=== PATIENT | female | born 1990 | race Hispanic/Latino ===

== ENCOUNTER 2017-06-19 12:14 | Emergency (ER) | payer OTHER ==
[2017-06-19 12:24] VITALS: BP 136/87; RESP 18; TEMP 98.3; O2SAT 100
[2017-06-19 13:52] VITALS: PULSE 96
--- NOTE | 2017-06-19 14:47 | ED PDOC ---
HPI: CCC, URI, Sore Throat Time Seen by Provider: 06/19/17 13:03 Chief Complaint (Nursing): ENT Problem History Per: Patient (this patient has been coughing for one week, without fever , chills, nausea, vomiting. She is concerned that she has not improved completely and that she feels that there is phlegm stuck in the back of her throat. She also is concerned of her acute hoarseness that is improved but persistent.) Past Medical History Reviewed: Historical Data, Nursing Documentation, Vital Signs Vital Signs: Last Vital Signs Temp 98.3 F 06/19/17 12:20 Pulse 96 H 06/19/17 13:52 Resp 18 06/19/17 12:20 BP 136/87 06/19/17 12:20 Pulse Ox 100 06/19/17 12:20 - Medical History PMH: No Chronic Diseases - Surgical History Surgical History: No Surg Hx, Endoscopy - Family History Family History: States: Unknown Family Hx - Home Medications Home Medications: Ambulatory Orders Medication Instructions Recorded Promethazine DM [Phenergan DM 5 ml PO Q8H PRN #120 ml 06/19/17 Syrup] - Allergies Allergies/Adverse Reactions: Allergies Allergy/AdvReac Type Severity Reaction Status Date / Time No Known Allergies Allergy Verified 06/19/17 12:20 Review of Systems ROS Statement: Except As Marked, All Systems Reviewed And Found Negative Constitutional: Negative for: Fever, Chills Respiratory: Positive for: Cough. Negative for: Shortness of Breath Gastrointestinal: Negative for: Nausea, Vomiting Physical Exam - Reviewed Nursing Documentation Reviewed: Yes Vital Signs Reviewed: Yes - Physical Exam Appears: Positive for: Well, Non-toxic, No Acute Distress Head Exam: Positive for: ATRAUMATIC, NORMAL INSPECTION, NORMOCEPHALIC Skin: Positive for: Normal Color, Warm, DRY Eye Exam: Positive for: EOMI, Normal appearance, PERRL ENT: Positive for: Normal ENT Inspection Neck: Positive for: Normal, Painless ROM Cardiovascular/Chest: Positive for: Regular Rate, Rhythm Respiratory: Positive for: CNT, Normal Breath Sounds Gastrointestinal/Abdominal: Positive for: Normal Exam, Bowel Sounds, Soft Back: Positive for: Normal Inspection Extremity: Positive for: Normal ROM Neurologic/Psych: Positive for: Alert, Oriented - ECG O2 Sat by Pulse Oximetry: 100 Disposition - Clinical Impression Clinical Impression: URI (upper respiratory infection) - Patient ED Disposition Is Patient to be Admitted: No Doctor Will See Patient In The: Office Counseled Patient/Family Regarding: Diagnosis, Need For Followup, Rx Given - Disposition Disposition: Routine/Home Disposition Time: 14:47 Condition: STABLE Prescriptions: Promethazine DM [Phenergan DM Syrup] 5 ml PO Q8H PRN #120 ml PRN Reason: Cough Instructions: Upper Respiratory Infection (ED) Forms: [email or web address] ([place] Citizen), [facility] ED School/Work Excuse - POA Present On Arrival: None
== END 2017-06-19 14:54 | disposition home or self-care (01) ==
LOC: H.ER 12:14
DX: J06.9 Acute upper respiratory infection, unspecified (principal)